=== PATIENT | female | born 1990 | race Caucasian/White ===

== ENCOUNTER 2017-07-07 18:06 | Emergency (ER) | payer OTHER ==
[2017-07-07 18:18] VITALS: BP 110/71
--- NOTE | 2017-07-07 19:50 | ED Physician Documentation ---
PD HPI HEENT - Stated complaint Stated Complaint: SORE THROAT - Chief complaint Chief Complaint: Heent - History obtained from History obtained from: Patient - History of Present Illness Timing - onset: Other (5 days of sore throat which at the outset was accompanied by fevers, chills, and body aches especially the back and hips, that part is better but the sore throat is persistent.) Review of Systems Constitutional: reports: Fever, Chills, Myalgias, Fatigue Ears: denies: Ear pain Nose: denies: Rhinorrhea / runny nose Throat: reports: Sore throat PD PAST MEDICAL HISTORY - Past Medical History Past Medical History: Yes GI: GERD Psych: Depression - Past Surgical History Past 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 History: 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 HEENT: Tonsil/Adenoidectomy - Present Medications Home Medications: Ambulatory Orders Medication Instructions Recorded Confirmed HYDROcod/ACETAM 5/325 [[place] 5/325] 1 - 2 ea PO Q6H PRN #10 tablet 07/07/17 Omeprazole [PriLOSEC] 1 tab PO DAILY 07/07/17 07/07/17 Sertraline [Zoloft] 50 mg PO DAILY 07/07/17 07/07/17 - Allergies Allergies/Adverse Reactions: Allergies Allergy/AdvReac Type Severity Reaction Status Date / Time No Known Drug Allergies Allergy Verified 07/07/17 18:18 - Social History Does the pt smoke?: No Smoking Status: Never smoker Does the pt drink ETOH?: No Does the pt have substance abuse?: No - Immunizations Immunizations are current?: Yes - POLST Patient has POLST: No PD ED PE NORMAL - Vitals Vital signs reviewed: Yes - General General: Alert and oriented X 3, No acute distress - HEENT HEENT: PERRL, EOMI, Pharynx benign (s/p tonsillectomy) - Neck Neck: Supple, no meningeal sign, No bony TTP, Other (mod anterior adenopathy) - Cardiac Cardiac: RRR, No murmur - Respiratory Respiratory: No respiratory distress, Clear bilaterally - Abdomen Abdomen: Non tender - Neuro Neuro: Alert and oriented X 3, Normal speech Results - Vitals Vitals: Vital Signs - 24 hr 07/07/17 18:15 Temperature 36.2 C L Heart Rate 82 Respiratory 16 Rate Blood Pressure 110/71 O2 Saturation 98 Oxygen O2 Source Room air - Labs Labs: Laboratory Tests 07/07/17 18:21 Group A Strep Rapid Negative Departure - Departure Disposition: Home, Self Care Clinical Impression: Viral pharyngitis Condition: Good Record reviewed to determine appropriate education?: Yes Instructions: ED Pharyngitis Viral Prescriptions: HYDROcod/ACETAM 5/325 [[place] 5/325] 1 - 2 ea PO Q6H PRN #10 tablet PRN Reason: Pain Forms: Activity restrictions
== END 2017-07-07 19:56 | disposition home or self-care (01) ==
LOC: ED 18:06
DX: J02.8 Acute pharyngitis due to other specified organisms (principal); B97.89 Other viral agents as the cause of diseases classified elsewhere; K21.9 Gastro-esophageal reflux disease without esophagitis
CPT/HCPCS: 87070; 87430; 99283

== ENCOUNTER 2017-11-06 20:09 | Emergency (ER) | payer OTHER ==
[2017-11-06 20:31] LABS: BILIRUBIN,URINE NEGATIVE (NEGATIVE); GLUCOSE, URINE (UA) NEGATIVE (NEGATIVE); KETONES,URINE (UA) NEGATIVE (NEGATIVE); LEUKOCYTE ESTERASE, URINE TRACE (NEGATIVE); NITRITE,URINE NEGATIVE (NEGATIVE); OCCULT BLOOD,URINE NEGATIVE (NEGATIVE); PROTEIN,URINE NEGATIVE (NEGATIVE); UROBILINOGEN,URINE 1 (NORMAL) E.U./dL (NORMAL)
[2017-11-06 20:32] LABS: CLARITY,URINE CLEAR (CLEAR)
[2017-11-06] MEDS ORDERED: SODIUM CHLORIDE 0.9% 1,000 ML IV ONE (20:44)
[2017-11-06] MEDS ORDERED: METOCLOPRAMIDE 10 MG/2 ML VIAL IVP STA (20:44)
--- NOTE | 2017-11-06 20:47 | ED Physician Documentation ---
PD HPI NVD - Stated complaint Stated Complaint: VOMIT/9WKS - Chief complaint Chief Complaint: Abd Pain - History obtained from History obtained from: Patient - History of Present Illness Timing - onset: Other (This is a at 9 weeks gestation has had a lot of problems with vomiting. In her previous Zofran was quite helpful but it is ineffective for her vomiting now. She had a near syncopal episode due to dehydration today while vomiting. 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/Adenoidectomy - Present Medications Home Medications: Ambulatory Orders Medication Instructions Recorded Confirmed Sertraline [Zoloft] 75 mg PO DAILY 07/07/17 07/07/17 Metoclopramide [Reglan] 10 mg PO Q6H PRN #20 tablet 11/06/17 Vitamin B Complex 1 each PO 11/06/17 diphenhydrAMINE [Benadryl] 25 mg PO ONCE 11/06/17 11/06/17 raNITIdine [Zantac] 150 mg PO DAILY 11/06/17 11/06/17 - Allergies Allergies/Adverse Reactions: Allergies Allergy/AdvReac Type Severity Reaction Status Date / Time No Known Drug Allergies Allergy Verified 11/06/17 20:16 - Social History Does the pt smoke?: No Smoking Status: Never smoker Does the pt drink ETOH?: No Does the pt have substance abuse?: No - Immunizations Immunizations are current?: Yes - POLST Patient has POLST: No PD ED PE NORMAL - Vitals Vital signs reviewed: Yes - General General: Alert and oriented X 3, No acute distress - Cardiac Cardiac: RRR, No murmur - Respiratory Respiratory: No respiratory distress, Clear bilaterally - Abdomen Abdomen: Normal bowel sounds, Soft, Non tender - Female Female : Other (Bedside ultrasound demonstrates single live intrauterine with heart rate 167) - Back Back: No CVA TTP, No spinal TTP - Neuro Neuro: Alert and oriented X 3, Normal speech - Psych Psych: Normal mood, Normal affect Results - Vitals Vitals: Vital Signs - 24 hr 11/06/17 11/06/17 11/06/17 20:14 21:34 21:58 Temperature 36.6 C Heart Rate 82 70 76 Respiratory 16 16 16 Rate Blood Pressure 117/66 107/69 107/69 O2 Saturation 99 100 100 Oxygen O2 Source Room air - Labs Labs: Laboratory Tests 11/06/17 11/06/17 20:20 21:00 Sodium 131 L Potassium 3.6 Chloride 101 Carbon Dioxide 23 Anion Gap 7.0 BUN 8 Creatinine 0.7 Estimated GFR (MDRD) 100 Glucose 78 Calcium 9.0 Total Bilirubin 0.6 AST 15 ALT 19 Alkaline Phosphatase 63 Total Protein 7.5 Albumin 3.7 Globulin 3.8 Albumin/Globulin Ratio 1.0 Lipase 28 Urine Color YELLOW Urine Clarity CLEAR Urine pH 7.0 Ur Specific [place] 1.010 Urine Protein NEGATIVE Urine Glucose (UA) NEGATIVE Urine Ketones NEGATIVE Urine Occult Blood NEGATIVE Urine Nitrite NEGATIVE Urine Bilirubin NEGATIVE Urine Urobilinogen 1 (NORMAL) Ur Leukocyte Esterase TRACE H Urine RBC 0-5 Urine WBC 4-5 Ur Squamous Epith Cells MOD Squamous H Amorphous Sediment Rare Urine Bacteria Few Ur Microscopic Review INDICATED Urine Culture Comments NOT INDICATED PD MEDICAL DECISION MAKING - ED course ED course: 27-year-old with hyperemesis in with some symptoms of dehydration. Feeling much better after the administration of IV fluids and Reglan. Her diagnostics are reassuring and bedside ultrasound shows live IUP. Departure - Departure Disposition: 01 Home, Self Care Clinical Impression: Hyperemesis arising during Condition: Good Record reviewed to determine appropriate education?: Yes Instructions: ED Preg Morning Sickness Prescriptions: Metoclopramide [Reglan] 10 mg PO Q6H PRN #20 tablet PRN Reason: Nausea / Vomiting Comments: Call your doctor to arrange a follow-up appointment, make the next available appointment. In the interim, return anytime if worse or if new symptoms develop. Discharge Date/Time: 11/06/17 22:10
[2017-11-06 20:48] LABS: AMORPHOUS SEDIMENT,UR Rare /LPF; BACTERIA,URINE Few /HPF (None Seen); RBC,URINE 0-5 /HPF (0-5); SQUAMOUS EPITHELIAL CELL,UR MOD Squamous (<= Few)
[2017-11-06 21:23] LABS: ALBUMIN 3.7 g/dL (3.2-5.5); BILIRUBIN,TOTAL 0.6 mg/dL (0.2-1.0); CREATININE 0.7 mg/dL (0.4-1.0); TOTAL PROTEIN 7.5 g/dL (6.7-8.2)
[2017-11-06 21:35] VITALS: BP 107/69
== END 2017-11-06 22:10 | disposition home or self-care (01) ==
LOC: ED 20:09
DX: O21.1 Hyperemesis gravidarum with metabolic disturbance (principal); E86.0 Dehydration; Z3A.09 9 weeks gestation of pregnancy
CPT/HCPCS: 36415; 80053; 81001; 83690; 96361; 96374; 99283; J2765; 81003; 87086